=== PATIENT | male | born 1970 | race Caucasian/White ===

== ENCOUNTER 2021-06-11 16:08 | Emergency (ER) | payer BC ==
[2021-06-11] MEDS ORDERED: TORAdol 30 mg Injection IV ONE (16:55)
[2021-06-11] MEDS ORDERED: Sodium Chloride 0.9% 1000 ML 1,000 ML IV STA (16:55)
[2021-06-11] MEDS ORDERED: TORAdol 30 mg Injection ONE (17:09)
[2021-06-11] MEDS ORDERED: Sodium Chloride 0.9% 1000 ML 1,000 ML ONE (17:09)
[2021-06-11 17:20] LABS: Absolute Neutrophil Ct (ANC) 6.51 (1.4-6.9); BASOPHIL % 0.2 % (0.0-0.4); Basophil (Absolute #) 0.02 (0-0.4); Eosinophil % 0.7 % (0.00-5.0); Eosinophil (Absolute #) 0.07 (0-0.5); Hematocrit 44.8 % (42-50); Hemoglobin 14.4 gm/dl (12.5-18.0); Lymphocyte (Absolute #) 2.21 (1.0-4.6); Lymphocytes % 22.5 % (24.0-44.0); Mean Cell Volume 92.2 fl (78-100); Mean Corpuscular Hemoglobin 29.6 pg (26-32); Mean Corpuscular Hgb Concent. 32.1 g/dl (32-36); Mean Platelet Volume 10.2 fl (7.5-11.0); Monocyte (Absolute #) 1.02 (0.0-1.3); Monocytes % 10.4 % (0.0-12.0); Neutrophil % 66.2 % (36.0-66.0); Platelet Count 293 K/mm3 (150-450); Red Blood Count 4.86 M/mm3 (4.1-5.6); Red Cell Distribution Width 13.8 % (11.5-14.0); White Blood Count 9.8 K/mm3 (4.0-10.5)
[2021-06-11 17:25] LABS: ALBUMIN 4.5 g/dL (3.5-5.0); ALKALINE PHOSPHATASE 104 U/L (38-126); ANION GAP 16.1 MEQ/L (5-15); BLOOD UREA NITROGEN 18 mg/dL (9-20); CHLORIDE 104 mmol/L (98-107); Carbon Dioxide 23 mmol/L (22-30); Creatinine 1 1.23 mg/dL (0.66-1.25); EST GLOMERULAR FILTRATION RATE > 60.0 ML/MIN; Glucose 120 mg/dL (74-106); Potassium 3.6 mmol/L (3.5-5.1); SGOT/AST 28 U/L (17-59); SGPT/ALT 22 U/L (0-50); SODIUM 139 mmol/L (137-145); Total Protein 7.9 g/dL (6.3-8.2)
[2021-06-11] MEDS ORDERED: MORPHINE SULFATE 4 MG INJ ONE (17:28)
[2021-06-11] MEDS ORDERED: Zofran 4 MG/2 ML VIAL ONE (17:28)
--- NOTE | 2021-06-11 17:28 | ERPHSYRPT ---
- History of Present Illness Time Seen by Provider: 06/11/21 16:30 Patient Subjective Stated Complaint: Pt began having left flank pain approx a week ago that has radiated to the left side, pt states that he has urinating f requency, burning and blood Triage Nursing Assessment: Pt brought self to the ER, belle justin, was sent to the ER after leaving Dr. Johnson's office, rates left flank pain as 8/10, hx of kidney stones, skin n/w/d, painful urination, urination frequency, hematuria Physician History: Patient is a 50-year-old male presents to our ED as a referral from his primary care doctor's office for evaluation of suspected left-sided kidney stone. Patient has a history of kidney stones. Patient is experiencing left flank pain that has been ongoing for 1 week. Pain is coupled with hematuria. Pain intermittently radiates down to his left lower flank area. No trauma. No fever. No nausea vomiting or diaphoresis. Symptoms are moderate in intensity. Patient currently rates his pain 8 out of 10. Will give patient a dose of Toradol for pain control. Patient otherwise voices no other complaints concerns at this time. Timing/Duration: week(s) (1 week) Severity: moderate Modifying Factors: Improves With: nothing Associated Symptoms: No nausea, No vomiting, No shortness of breath, No diaphoresis, No cough, No chills, No chest pain, No headaches, No syncope, No seizure, No weakness Allergies/Adverse Reactions: cephalexin monohydrate [From Keflex] Adverse Reaction (Mild, Verified 06/11/21 16:25) Nausea Home Medications: ARIPiprazole [Aripiprazole] 20 mg PO DAILY 06/11/21 [History] Vilazodone HCl [Viibryd] 40 mg PO DAILY 06/11/21 [History] Hx Tetanus, Diphtheria Vaccination/Date Given: No (unknown) Hx Influenza Vaccination/Date Given: No Hx Pneumococcal Vaccination/Date Given: No Travel Risk - International Travel Have you traveled outside of the country in past 3 weeks: No - Coronavirus Screening Are you exhibiting any of the following symptoms?: No Close contact with a COVID-19 positive Pt in past 14-21 Days: No - Vaccine Status Have you recieved a Covid-19 vaccination: Yes 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 - Vaccination Dates Date of 2cond Vaccination (if applicable): 03/2021 - Review of Systems Constitutional: No Symptoms, No Fever, No Chills Eyes: No Symptoms Ears, Nose, & Throat: No Symptoms Respiratory: No Symptoms, No Cough, No Dyspnea Cardiac: No Symptoms, No Chest Pain, No Edema, No Syncope Abdominal/Gastrointestinal: No Symptoms, No Abdominal Pain, No Nausea, No Vomiting, No Diarrhea Genitourinary Symptoms: No Symptoms, No Dysuria Musculoskeletal: No Symptoms, No Back Pain, No Neck Pain Skin: No Symptoms, No Rash Neurological: No Symptoms, No Dizziness, No Focal Weakness, No Sensory Changes Psychological: No Symptoms Endocrine: No Symptoms Hematologic/Lymphatic: No Symptoms Immunological/Allergic: No Symptoms All Other Systems: Reviewed and Negative - Past Medical History Pertinent Past Medical History: Yes Neurological History: No Pertinent History ENT History: No Pertinent History Cardiac History: Hypertension Respiratory History: No Pertinent History Endocrine Medical History: No Pertinent History Musculoskeletal History: No Pertinent History GI Medical History: No Pertinent History History: No Pertinent History Psycho-Social History: Depression Male Reproductive Disorders: No Pertinent History Other Medical History: Had PT 7 years ago, was injured at work and didn't have to have surgery. - Past Surgical History Past Surgical History: Yes Neuro Surgical History: No Pertinent History Cardiac: No Pertinent History Respiratory: No Pertinent History Gastrointestinal: Hemorrhoidectomy Genitourinary: No Pertinent History Musculoskeletal: No Pertinent History Male Surgical History: No Pertinent History - Social History Smoking Status: Never smoker Exposure to second hand smoke: Yes Drug Use: none Patient Lives Alone: No - Nursing Vital Signs Nursing Vital Signs: Initial Vital Signs Temperature 98.1 F 06/11/21 16:15 Pulse Rate 82 06/11/21 16:15 Blood Pressure 129/83 06/11/21 16:15 O2 Sat by Pulse Oximetry 96 06/11/21 16:15 Pain Scale Pain Intensity 6 - Physical Exam General Appearance: no apparent distress, alert Eye Exam: PERRL/EOMI, eyes nml inspection Ears, Nose, Throat Exam: normal ENT inspection, TMs normal, pharynx normal, moist mucous membranes Neck Exam: normal inspection, non-tender, supple, full range of motion Respiratory Exam: normal breath sounds, lungs clear, airway intact, No respiratory distress Cardiovascular Exam: regular rate/rhythm, normal heart sounds, normal peripheral pulses Gastrointestinal/Abdomen Exam: soft, normal bowel sounds, No tenderness, No mass Back Exam: normal inspection, normal range of motion, No CVA tenderness, No vertebral tenderness Extremity Exam: normal inspection, normal range of motion, pelvis stable Neurologic Exam: alert, oriented x 3, cooperative, normal mood/affect, nml cerebellar function, nml station & gait, sensation nml, No motor deficits Skin Exam: normal color, warm, dry, No rash Lymphatic Exam: No adenopathy SpO2 Interpretation: normal SpO2: 96 O2 Delivery: Room Air - Course Nursing assessment & vital signs reviewed: Yes - CT Exams Abdomen/Pelvis CT Interpretation: Tele-radiologist Report (New 3 to 4 mm urinary bladder calculus with mild left hydronephrosis and minimal hydroureter. Additional left renal punctate calculus. Incidental chronic bony findings and old granulomatous disease.) Ordered Tests: Active Orders 24 hr Category Date Time Status IV Insertion STAT Care 06/11/21 16:55 Active ABDOMEN AND PELVIS W/0 CONTRAS [CT] Stat Exams 06/11/21 16:55 Completed CBC W DIFF Stat Lab 06/11/21 16:23 Completed CMP Stat Lab 06/11/21 16:23 Completed TROPONIN Q3H Lab 06/11/21 16:23 Completed TROPONIN Q3H Lab 06/11/21 20:00 Ordered TROPONIN Q3H Lab 06/11/21 23:00 Ordered TROPONIN Q3H Lab 06/12/21 02:00 Ordered TROPONIN Q3H Lab 06/12/21 05:00 Ordered UA W/RFX UR CULTURE Stat Lab 06/11/21 17:01 Ordered Medication Summary Discontinued Medications Generic Name Dose Route Start Last Admin Trade Name Freq PRN Reason Stop Dose Admin Sodium Chloride 1,000 mls @ 999 mls/hr 06/11/21 16:55 06/11/21 17:12 Sodium Chloride 0.9% 1000 Ml IV 06/11/21 17:55 999 mls/hr .Q1H1M STA Administration Sodium Chloride Confirm 06/11/21 17:09 Sodium Chloride 0.9% 1000 Ml Administered 06/11/21 17:10 Dose 1,000 mls @ ud .ROUTE .STK-MED ONE Ketorolac Tromethamine 30 mg 06/11/21 16:55 06/11/21 17:12 Ketorolac Tromethamine 30 Mg/Ml Inj IV 06/11/21 16:56 30 mg STAT ONE Administration Ketorolac Tromethamine Confirm 06/11/21 17:09 Ketorolac Tromethamine 30 Mg/Ml Inj Administered 06/11/21 17:10 Dose 30 mg .ROUTE .STK-MED ONE Morphine Sulfate Confirm 06/11/21 17:28 Morphine Sulfate 4 Mg/Ml Injection Administered 06/11/21 17:29 Dose 4 mg .ROUTE .STK-MED ONE Morphine Sulfate 4 mg 06/11/21 17:29 06/11/21 17:32 Morphine Sulfate 4 Mg/Ml Injection IV 06/11/21 17:30 4 mg STAT ONE Administration Ondansetron HCl Confirm 06/11/21 17:28 Ondansetron Hcl 4 Mg/2 Ml Vial Administered 06/11/21 17:29 Dose 4 mg .ROUTE .STK-MED ONE Ondansetron HCl 4 mg 06/11/21 17:29 06/11/21 17:32 Ondansetron Hcl 4 Mg/2 Ml Vial IV 06/11/21 17:30 4 mg STAT ONE Administration Lab/Rad Data: Laboratory Result Diagrams 06/11/21 16:23 06/11/21 16:23 Laboratory Results 06/11/21 06/11/21 06/11/21 Range/Units 16:23 16:23 16:23 WBC 9.8 (4.0-10.5) K/mm3 RBC 4.86 (4.1-5.6) M/mm3 Hgb 14.4 (12.5-18.0) gm/dl Hct 44.8 (42-50) % MCV 92.2 (78-100) fl MCH 29.6 (26-32) pg MCHC 32.1 (32-36) g/dl RDW 13.8 (11.5-14.0) % Plt Count 293 (150-450) K/mm3 MPV 10.2 (7.5-11.0) fl Gran % 66.2 H (36.0-66.0) % Eos # (Auto) 0.07 (0-0.5) Absolute Lymphs (auto) 2.21 (1.0-4.6) Absolute Monos (auto) 1.02 (0.0-1.3) Lymphocytes % 22.5 L (24.0-44.0) % Monocytes % 10.4 (0.0-12.0) % Eosinophils % 0.7 (0.00-5.0) % Basophils % 0.2 (0.0-0.4) % Absolute Granulocytes 6.51 (1.4-6.9) Basophils # 0.02 (0-0.4) Sodium 139 (137-145) mmol/L Potassium 3.6 (3.5-5.1) mmol/L Chloride 104 (98-107) mmol/L Carbon Dioxide 23 (22-30) mmol/L Anion Gap 16.1 H (5-15) MEQ/L BUN 18 (9-20) mg/dL Creatinine 1.23 (0.66-1.25) mg/dL Estimated GFR > 60.0 ML/MIN Glucose 120 H (74-106) mg/dL Calcium 9.0 (8.4-10.2) mg/dL Total Bilirubin 1.20 (0.2-1.3) mg/dL AST 28 (17-59) U/L ALT 22 (0-50) U/L Alkaline Phosphatase 104 (38-126) U/L Troponin I < 0.012 (0.000-0.034) ng/mL Serum Total Protein 7.9 (6.3-8.2) g/dL Albumin 4.5 (3.5-5.0) g/dL - Progress Progress: improved Progress Note: Patient reassessed. He is now pain-free. A new 3 to 4 mm urinary bladder calculus with mild left hydronephrosis and minimal hydroureter. It appears as though the stone has passed into the bladder. We will provide patient with a screen to screen urine hopefully catching the calculus. Patient will be referred to urology for follow-up. Patient voices no other complaints or concerns at this time. Portions of this note were created with voice recognition technology. There may be grammatical, spelling, punctuation or sound alike errors 06/11/21 18:13 Since the stone has passed into the bladder there is no need for Flomax at this time. 06/11/21 18:15 Counseled pt/family regarding: lab results, diagnosis, need for follow-up, rad results - Departure Departure Disposition: Home Clinical Impression: Lung granuloma, Ureterolithiasis, Hydronephrosis, Hydroureter, Nephrolithiasis, Arthritis of spine Condition: Stable Critical Care Time: No Referrals: WINIFRED JOHNSON MD [Primary Care Provider] - Follow up/PCP as directed BENEDICT PALOMINO [COURTESY STAFF] - Follow up/PCP as directed Additional Instructions: Discharge/Care Plan KIMBERLEY MONTES was seen on 06/11/21 in the Emergency Room. The patient was counseled regarding Diagnosis,Lab results, Imaging studies, need for follow up and when to return to the Emergency Room. Prescriptions given: Discharge Note I have spoken with the patient and/or caregivers. I have explained the patient's condition, diagnosis and treatment plan based on the information available to me at this time. I have answered the patient's and/or caregiver's questions and addressed any concerns. The patient and/or caregivers have as good understanding of the patient's diagnosis, condition and treatment plan as can be expected at this point. The vital signs have been stable. The patient's condition is stable and appropriate for discharge from the emergency department. The patient will pursue further outpatient evaluation with the primary care physician or other designated or consulting physician as outlined in the discharge instructions. The patient and/or caregivers are agreeable to this plan of care and follow-up instructions have been explained in detail. The patient and/or caregivers have received these instruction. The patient/and or caregivers are aware that any significant change in condition or worsening of symptoms should prompt an immediate return to this or the closest emergency department or call 911. Prescriptions: Ketorolac Tromethamine [Toradol] 10 mg PO TID 5 Days #15 tablet
[2021-06-11] MEDS ORDERED: MORPHINE SULFATE 4 MG INJ IV ONE (17:29)
[2021-06-11] MEDS ORDERED: Zofran 4 MG/2 ML VIAL IV ONE (17:29)
--- NOTE | 2021-06-11 17:47 | XRAY ---
Indication: Left flank pain. Hematuria. History stones. Multiple contiguous images obtained through the abdomen and pelvis without contrast using renal stone protocol. Comparison: June 25, 2015. Lung bases again demonstrate small posterior left lower lobe calcified granuloma. No infiltrate or effusion. Heart not enlarged. Left infrahilar calcified nodes not previously imaged. Urinary bladder demonstrates new 3-4 mm calculus posteriorly adjacent to the left UVJ. Left kidney is now moderately hydronephrotic with minimal hydroureter consistent with recent passage of said calculus. Left lower renal calyx demonstrates additional punctate calculus. Noncontrasted stomach and bowel loops not obstructed with normal appendix. No free fluid/air. Remaining liver, gallbladder, pancreas, spleen, adrenal glands, kidneys, ureters, bladder, and aorta are unremarkable for noncontrast exam. Osseous structures intact with minimal/mild degenerative changes throughout the thoracolumbar spine. Impression: 1. New 3-4 mm urinary bladder calculus with mild left hydronephrosis and minimal hydroureter. Additional left renal punctate calculus. 2. Incidental chronic bony findings and old granulomatous disease.
[2021-06-11 18:03] LABS: Appearance CLEAR (CLEAR); Bacteria RARE /HPF (NEGATIVE); Bilirubin NEGATIVE (NEGATIVE); Blood LARGE Ery/ul (0-5); Epithelial Cells RARE /HPF (FEW); Glucose NEGATIVE (NEGATIVE); Ketones NEGATIVE (NEGATIVE); Leukocyte Esterase NEGATIVE (NEGATIVE); Mucus SLIGHT /HPF (NEGATIVE); Nitrite NEGATIVE (NEGATIVE); Protein,Urine Dip 30 (Negative); RBC 51-100 /HPF (0-2); Specific Gravity 1.017 (1.005-1.025); Urobilinogen NEGATIVE mg/dL (0-1)
== END 2021-06-11 18:21 | disposition home or self-care (01) ==
LOC: ED 16:08
DX: N13.2 Hydronephrosis with renal and ureteral calculous obstruction (principal); Z87.442 Personal history of urinary calculi; N13.4 Hydroureter; R31.9 Hematuria, unspecified; J84.10 Pulmonary fibrosis, unspecified; M47.819 Spondylosis without myelopathy or radiculopathy, site unspecified
CPT/HCPCS: 36000; 36415; 74176; 80053; 81001; 84484; 85025; 87086; 96374; 96375; 99284; J1885; J2270; J2405

== ENCOUNTER 2021-11-24 19:10 | Emergency (ER) | payer BC ==
--- NOTE | 2021-11-24 20:24 | ERPHSYRPT ---
- History of Present Illness Time Seen by Provider: 11/24/21 20:20 Source: patient, family Exam Limitations: no limitations Patient Subjective Stated Complaint: pt states he has had swelling in his lower ext since yesterday. woke up with a red rash and burning pain in his legs today Triage Nursing Assessment: pt alert and oriented, answers questions approp. pt ambulatory with steady gait noted. respirations nonlabored. red areas noted to bilat lower legs with warmth noted. pt states pain as 8/10 and describes as burning. Physician History: pt reports bilateral ankle swelling yesterday followed by rash and burning both legs today allergy to Keflex but nothing else. no known allergen exposures. rash in bilateral saphenous distribution like cellulitis and tender with bilateral leg swelling. no SOBreath or CP. No itching. neg homans. NV intact distally. abd nontender without mass or peritoneal signs. no Hx of DVT. Timing/Duration: yesterday Quality: painful Severity: moderate Location: extremities Possible Causes: no cause identified Associated Symptoms: edema, rash, No difficulty breathing Allergies/Adverse Reactions: cephalexin monohydrate [From Keflex] Adverse Reaction (Mild, Verified 11/24/21 19:36) Nausea Home Medications: ARIPiprazole [Aripiprazole] 20 mg PO DAILY 06/11/21 [History] Vilazodone HCl [Viibryd] 40 mg PO DAILY 06/11/21 [History] Amlodipine Besylate 5 mg [Norvasc 5 mg] 5 mg PO DAILY 11/24/21 [History] Hx Tetanus, Diphtheria Vaccination/Date Given: Yes Hx Influenza Vaccination/Date Given: Yes Hx Pneumococcal Vaccination/Date Given: No Immunizations Up to Date: Yes Travel Risk - International Travel Have you traveled outside of the country in past 3 weeks: No - Coronavirus Screening Are you exhibiting any of the following symptoms?: No Close contact with a COVID-19 positive Pt in past 14-21 Days: No - Vaccine Status Have you recieved a Covid-19 vaccination: Yes 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 - Vaccination Dates Date of 2cond Vaccination (if applicable): mar 2021 - Review of Systems Constitutional: No Fever, No Chills Eyes: No Symptoms Ears, Nose, & Throat: No Symptoms Respiratory: No Cough, No Dyspnea Cardiac: No Chest Pain, No Edema, No Syncope Abdominal/Gastrointestinal: No Abdominal Pain, No Nausea, No Vomiting, No Diarrhea Genitourinary Symptoms: No Dysuria Musculoskeletal: No Back Pain, No Neck Pain Skin: Cellulitis, Rash Neurological: No Dizziness, No Focal Weakness, No Sensory Changes Psychological: No Symptoms Endocrine: No Symptoms Hematologic/Lymphatic: No Symptoms Immunological/Allergic: No Symptoms All Other Systems: Reviewed and Negative - Past Medical History Pertinent Past Medical History: Yes Neurological History: No Pertinent History ENT History: No Pertinent History Cardiac History: Hypertension Respiratory History: No Pertinent History Endocrine Medical History: No Pertinent History Musculoskeletal History: No Pertinent History GI Medical History: No Pertinent History History: No Pertinent History Psycho-Social History: Depression Male Reproductive Disorders: No Pertinent History Other Medical History: Had PT 7 years ago, was injured at work and didn't have to have surgery. - Past Surgical History Past Surgical History: Yes Neuro Surgical History: No Pertinent History Cardiac: No Pertinent History Respiratory: No Pertinent History Gastrointestinal: Hemorrhoidectomy Genitourinary: No Pertinent History Musculoskeletal: Orthopedic Surgery Male Surgical History: No Pertinent History Other Surgical History: back surgery - Social History Smoking Status: Never smoker Exposure to second hand smoke: Yes Drug Use: none Patient Lives Alone: No (family) - Nursing Vital Signs Nursing Vital Signs: Initial Vital Signs Temperature 97.6 F 11/24/21 19:24 Pulse Rate 90 11/24/21 19:24 Respiratory Rate 20 11/24/21 19:24 Blood Pressure 181/84 11/24/21 19:24 O2 Sat by Pulse Oximetry 97 11/24/21 19:24 Pain Scale Pain Intensity 4 - Physical Exam General Appearance: no apparent distress, alert Eye Exam: PERRL/EOMI, eyes nml inspection Ears, Nose, Throat Exam: normal ENT inspection, pharynx normal, moist mucous membranes Neck Exam: normal inspection, non-tender, supple, full range of motion Respiratory Exam: normal breath sounds, lungs clear, No respiratory distress Cardiovascular Exam: regular rate/rhythm, normal heart sounds Gastrointestinal/Abdomen Exam: soft, mass, No tenderness Rectal Exam: deferred Back Exam: normal inspection, normal range of motion, No CVA tenderness, No vertebral tenderness Extremity Exam: normal inspection, normal range of motion, inflammation, pedal edema, swelling, tenderness Neurologic Exam: alert, oriented x 3, cooperative, normal mood/affect, sensation nml, No motor deficits Skin Exam: normal color, warm, dry, rash SpO2: 97 - Course Nursing assessment & vital signs reviewed: Yes - Radiology Ultrasound Exam Venous Lower Extremity Ultrasound: tele radiology report, negative, Other (No DVTs) Ordered Tests: Active Orders 24 hr Category Date Time Status VENOUS BILATERAL EXTREMITY [US] Stat Exams 11/24/21 20:25 Taken CBC W DIFF Stat Lab 11/24/21 20:35 Completed CMP Stat Lab 11/24/21 20:45 Completed UA W/RFX CULTURE Stat Lab 11/24/21 Completed Medication Summary Discontinued Medications Generic Name Dose Route Start Last Admin Trade Name Freq PRN Reason Stop Dose Admin Dexamethasone Sodium Phosphate 10 mg 11/24/21 20:26 11/24/21 20:57 Dexamethasone Sod Phosphate 10 Mg/Ml IM 11/24/21 20:27 10 mg STAT ONE Administration Dexamethasone Sodium Phosphate Confirm 11/24/21 20:53 Dexamethasone Sod Phosphate 10 Mg/Ml Administered 11/24/21 20:54 Dose 10 mg .ROUTE .STK-MED ONE Diphenhydramine HCl 50 mg 11/24/21 20:26 11/24/21 21:03 Diphenhydramine Hcl 50 Mg/Ml Vial IM 11/24/21 20:27 50 mg STAT ONE Administration Diphenhydramine HCl Confirm 11/24/21 20:54 Diphenhydramine Hcl 50 Mg/Ml Vial Administered 11/24/21 20:55 Dose 50 mg .ROUTE .STK-MED ONE Levofloxacin 250 mg 11/24/21 20:27 11/24/21 20:57 Levofloxacin 250 Mg Tab PO 11/24/21 20:28 250 mg STAT ONE Administration Levofloxacin Confirm 11/24/21 20:53 Levofloxacin 250 Mg Tab Administered 11/24/21 20:54 Dose 250 mg .ROUTE .STK-MED ONE Lab/Rad Data: Laboratory Result Diagrams 11/24/21 20:35 11/24/21 20:45 Laboratory Results 11/24/21 11/24/21 11/24/21 Range/Units Unknown 20:45 20:35 WBC 7.7 (4.0-10.5) K/mm3 RBC 4.43 (4.1-5.6) M/mm3 Hgb 13.6 (12.5-18.0) gm/dl Hct 42.2 (42-50) % MCV 95.3 (78-100) fl MCH 30.7 (26-32) pg MCHC 32.2 (32-36) g/dl RDW 13.8 (11.5-14.0) % Plt Count 257 (150-450) K/mm3 MPV 9.6 (7.5-11.0) fl Gran % 59.0 (36.0-66.0) % Eos # (Auto) 0.22 (0-0.5) Absolute Lymphs (auto) 2.24 (1.0-4.6) Absolute Monos (auto) 0.64 (0.0-1.3) Lymphocytes % 29.3 (24.0-44.0) % Monocytes % 8.4 (0.0-12.0) % Eosinophils % 2.9 (0.00-5.0) % Basophils % 0.4 (0.0-0.4) % Absolute Granulocytes 4.52 (1.4-6.9) Basophils # 0.03 (0-0.4) Sodium 139 (137-145) mmol/L Potassium 4.0 (3.5-5.1) mmol/L Chloride 106 (98-107) mmol/L Carbon Dioxide 23 (22-30) mmol/L Anion Gap 14.0 (5-15) MEQ/L BUN 21 H (9-20) mg/dL Creatinine 1.18 (0.66-1.25) mg/dL Estimated GFR > 60.0 ML/MIN Glucose 130 H (74-106) mg/dL Calcium 9.1 (8.4-10.2) mg/dL Total Bilirubin 0.70 (0.2-1.3) mg/dL AST 29 (17-59) U/L ALT 26 (0-50) U/L Alkaline Phosphatase 110 (38-126) U/L Serum Total Protein 7.3 (6.3-8.2) g/dL Albumin 4.1 (3.5-5.0) g/dL Urinalys Dipstick Clnc MAIN LAB Urine Color YELLOW (YELLOW) Urine Appearance CLEAR (CLEAR) Urine pH 7.0 (5-6) Ur Specific [place] 1.020 (1.005-1.025) POC Urine Protein Conf NEGATIVE (Negative) Urine Ketones NEGATIVE (NEGATIVE) Urine Nitrite NEGATIVE (NEGATIVE) Urine Bilirubin NEGATIVE (NEGATIVE) Urine Urobilinogen 1 (0-1) mg/dL Urine Leukocytes NEGATIVE (NEGATIVE) Urine WBC (Auto) 3-5 (0-5) /HPF Urine RBC (Auto) 0-2 (0-2) /HPF U Epithel Cells (Auto) RARE (FEW) /HPF Urine RBC NEGATIVE (0-5) Aguilar/ul Ur Culture Indicated? NO Urine Glucose NEGATIVE (NEGATIVE) mg/dL - Progress Progress: improved, re-examined Progress Note: 11/24/21 23:25 discussed with pt that we have not determined a cause for his symptoms and a variety of potentially serious ( even can cause ) immunologic/CV, Infect ious or other conditions could still be evolving undetected. He understands but prefers release to outpt f/u and w/u rather than further w/u in ER at this time and has the mental status and cpacity to make this choice. Counseled pt/family regarding: lab results, diagnosis, need for follow-up, rad results - Departure Departure Disposition: Home Clinical Impression: cellulitis/possible vasculitis or immune, edema BLE Condition: Good Critical Care Time: No Referrals: WINIFRED JOHNSON MD [Primary Care Provider] - Follow up/PCP as directed Instructions: Dependent Edema (DC), Cellulitis (Skin Infection), Adult (DC), Vasculitis (DC), Skin Rash (DC) Additional Instructions: see your this week for follow-up and referral as we have not determined the cause, but are treating for an immune condition as well as infection possibilities. Although we had a negative test for blood clots in the legs , you still may be at risk for these devleoping later and should return if worsening swelling , redness or other symptoms./ The antibiotic in this class can sometimes affect tendons and so heavy activities are best restricted for a few weeks after and saee your Dr. if any symptoms in any tendons. followup your blood pressure with your Dr. Prescriptions: Levofloxacin [Levofloxacin 500 MG Tablet] 500 mg PO DAILY #10 tablet Methylprednisolone Packet [Medrol Dosepack] 4 mg PO UD #30 packet
[2021-11-24] MEDS ORDERED: BENADRYL 50 MG/ML IM ONE (20:26)
[2021-11-24] MEDS ORDERED: DECADRON 10MG INJ. IM ONE (20:26)
[2021-11-24] MEDS ORDERED: Levofloxacin 250MG Tablet PO ONE (20:27)
[2021-11-24 20:45] LABS: Absolute Neutrophil Ct (ANC) 4.52 (1.4-6.9); Basophil (Absolute #) 0.03 (0-0.4); Eosinophil % 2.9 % (0.00-5.0); Eosinophil (Absolute #) 0.22 (0-0.5); Hematocrit 42.2 % (42-50); Hemoglobin 13.6 gm/dl (12.5-18.0); Lymphocyte (Absolute #) 2.24 (1.0-4.6); Lymphocytes % 29.3 % (24.0-44.0); Mean Cell Volume 95.3 fl (78-100); Mean Corpuscular Hemoglobin 30.7 pg (26-32); Mean Corpuscular Hgb Concent. 32.2 g/dl (32-36); Mean Platelet Volume 9.6 fl (7.5-11.0); Monocyte (Absolute #) 0.64 (0.0-1.3); Monocytes % 8.4 % (0.0-12.0); Platelet Count 257 K/mm3 (150-450); Red Blood Count 4.43 M/mm3 (4.1-5.6); Red Cell Distribution Width 13.8 % (11.5-14.0); White Blood Count 7.7 K/mm3 (4.0-10.5)
[2021-11-24] MEDS ORDERED: DECADRON 10MG INJ. ONE (20:53)
[2021-11-24] MEDS ORDERED: Levofloxacin 250MG Tablet ONE (20:53)
[2021-11-24] MEDS ORDERED: BENADRYL 50 MG/ML ONE (20:54)
[2021-11-24 21:01] LABS: ALBUMIN 4.1 g/dL (3.5-5.0); ALKALINE PHOSPHATASE 110 U/L (38-126); BLOOD UREA NITROGEN 21 mg/dL (9-20); CHLORIDE 106 mmol/L (98-107); Calcium 9.1 mg/dL (8.4-10.2); Carbon Dioxide 23 mmol/L (22-30); Creatinine 1 1.18 mg/dL (0.66-1.25); EST GLOMERULAR FILTRATION RATE > 60.0 ML/MIN; Glucose 130 mg/dL (74-106); SGOT/AST 29 U/L (17-59); SGPT/ALT 26 U/L (0-50); SODIUM 139 mmol/L (137-145); Total Protein 7.3 g/dL (6.3-8.2)
[2021-11-24 22:22] LABS: Epithelial Cells RARE /HPF (FEW); RBC 0-2 /HPF (0-2)
[2021-11-24 22:24] LABS: Appearance CLEAR (CLEAR); Bilirubin NEGATIVE (NEGATIVE); Glucose NEGATIVE (NEGATIVE); Ketones NEGATIVE (NEGATIVE); Nitrite NEGATIVE (NEGATIVE); Protein,Urine Dip NEGATIVE (Negative); RBC NEGATIVE Ery/ul (0-5); Urine Cultured Indicated? NO; Urobilinogen 1 mg/dL (0-1)
[2021-11-24 22:25] LABS: Dipstick done @ ? MAIN LAB
[2021-11-24 23:23] VITALS: BP 153/98; PULSE 84
[2021-11-24 23:28] VITALS: O2SAT 97
--- NOTE | 2021-11-25 07:21 | XRAY ---
Indication: Rash. Edema. 2-dimensional sonogram and color Doppler imaging of the major venous vessels of the left and right leg performed. Comparison: None No thrombus seen in the examined deep venous vessels of the left and right leg including greater saphenous vein. Veins demonstrate normal compressibility. Venous waveforms are normal with and without augmentation. Impression: Left and right legs negative for DVT. Comment: Preliminary report was given.
== END 2021-11-24 23:48 | disposition home or self-care (01) ==
LOC: ED 19:10
DX: L03.116 Cellulitis of left lower limb (principal); L03.115 Cellulitis of right lower limb; R60.0 Localized edema; R21 Rash and other nonspecific skin eruption; I10 Essential (primary) hypertension; Z79.899 Other long term (current) drug therapy; Z79.52 Long term (current) use of systemic steroids
CPT/HCPCS: 36415; 80053; 81015; 85025; 93970; 96372; 99284; J1100; J1200; A9270-GY

== ENCOUNTER 2025-05-29 09:55 | Emergency (ER) | payer BC ==
[2025-05-29 10:39] VITALS: RESP 16; TEMP 98
[2025-05-29] MEDS ORDERED: NORCO 5/325 MG ONE (10:40)
[2025-05-29] MEDS ORDERED: MOTRIN 600 MG ONE (10:40)
[2025-05-29] MEDS: NORCO 5/325 MG PO ONE (10:41)
[2025-05-29] MEDS: MOTRIN 600 MG PO ONE (10:41)
--- NOTE | 2025-05-29 10:43 | ERPHSYRPT ---
- History of Present Illness Physician History: Right knee pain, No known injury, he does note deliveries, he denies previous surgery to that knee, Initial onset of symptoms was about a week ago and is Aggressively worse over the last 24 hours Method of Injury: unknown Occurred: days ago (1) Quality: constant, aching Severity of Pain-Max: severe Severity of Pain-Current: severe Lower Extremities Pain: knee: right Modifying Factors: Improves With: nothing Allergies/Adverse Reactions: cephalexin monohydrate [From Keflex] Adverse Reaction (Mild, Verified 05/29/25 10:34) Nausea Home Medications: ARIPiprazole [Aripiprazole] 20 mg PO DAILY 06/11/21 [History] Vilazodone HCl [Viibryd] 40 mg PO DAILY 06/11/21 [History] Amlodipine Besylate 5 mg [Norvasc 5 mg] 5 mg PO DAILY 11/24/21 [History] Hx Tetanus, Diphtheria Vaccination/Date Given: Yes Hx Influenza Vaccination/Date Given: Yes Hx Pneumococcal Vaccination/Date Given: No - Past Medical History Pertinent Past Medical History: Yes Neurological History: No Pertinent History ENT History: No Pertinent History Cardiac History: Hypertension Respiratory History: No Pertinent History Endocrine Medical History: No Pertinent History Musculoskeletal History: No Pertinent History GI Medical History: No Pertinent History History: No Pertinent History Psycho-Social History: Depression Male Reproductive Disorders: No Pertinent History Other Medical History: Had PT 7 years ago, was injured at work and didn't have to have surgery. - Past Surgical History Past Surgical History: Yes Neuro Surgical History: No Pertinent History Cardiac: No Pertinent History Respiratory: No Pertinent History Gastrointestinal: Hemorrhoidectomy Genitourinary: No Pertinent History Musculoskeletal: Orthopedic Surgery Male Surgical History: No Pertinent History Other Surgical History: back surgery - Social History Smoking Status: Never smoker Exposure to second hand smoke: Yes Drug Use: none Patient Lives Alone: No (family) - Nursing Vital Signs Nursing Vital Signs: Initial Vital Signs Temperature 98 F 05/29/25 09:55 Pulse Rate 74 05/29/25 09:55 Respiratory Rate 16 05/29/25 09:55 Blood Pressure 146/89 05/29/25 09:55 O2 Sat by Pulse Oximetry 96 05/29/25 09:55 Pain Scale Pain Intensity 10 - Physical Exam General Appearance: no apparent distress, alert Knees Exam: right knee: pain, soft tissue tenderness, swelling (Suprapatellar) Neuro/Tendon Exam: normal sensation, normal motor functions, no evidence tendon injury Mental Status Exam: alert, oriented x 3, cooperative Skin Exam: normal color, warm, dry SpO2 Interpretation: normal SpO2: 96 - Radiology Exams Knee X-ray Interpretation: Interpreted by me, No Fracture, No Subluxation Ordered Tests: Active Orders 24 hr Category Date Time Status KNEE (MIN 4 VIEW) Stat Exams 05/29/25 10:33 Taken Medication Summary Discontinued Medications Generic Name Dose Route Start Last Admin Trade Name Freq PRN Reason Stop Dose Admin Hydrocodone Bitart/Acetaminophen 1 tab 05/29/25 10:34 05/29/25 10:41 Hydrocodone/Apap 5/325 1 Tab Tablet PO 05/29/25 10:35 1 tab STAT ONE Administration Hydrocodone Bitart/Acetaminophen Confirm 05/29/25 10:40 Hydrocodone/Apap 5/325 1 Tab Tablet Administered 05/29/25 10:41 Dose 1 tab .ROUTE .STK-MED ONE Ibuprofen 600 mg 05/29/25 10:34 05/29/25 10:41 Ibuprofen 600 Mg Tablet PO 05/29/25 10:35 600 mg STAT ONE Administration Ibuprofen Confirm 05/29/25 10:40 Ibuprofen 600 Mg Tablet Administered 05/29/25 10:41 Dose 600 mg .ROUTE .STK-MED ONE - Progress Progress Note: 05/29/25 11:52 Discussed x-ray results, outpatient follow-up and treatment - Departure Departure Disposition: Home Clinical Impression: Tendonitis of knee, right Condition: Stable Critical Care Time: No Referrals: MARIZOL GARCIA MD [ACTIVE STAFF, ORTHOPEDICS] - Follow up/PCP as directed Instructions: Bursitis - ED discharge instructions Additional Instructions: Ice 10 to 15 minutes, 3-4 times a day, follow-up to orthopedic walk-in clinic( 8a-10a); Ibuprofen 2-3 tabs 3 times a day Prescriptions: Hydrocodone/Acetaminophen [Hydrocodone-Acetamin 5-325 mg] 1 tab PO Q6HPRN PRN #12 tablet MDD 4 PRN Reason: Pain
[2025-05-29 12:05] VITALS: BP 111/49; PULSE 69; O2SAT 97
--- NOTE | 2025-05-29 18:55 | XRAY ---
Indication: Pain. Comparison: None 4 view right knee demonstrates osteopenia, minimal/mild tricompartmental degenerative changes greatest medial compartment, 7 x 5 x 17 mm medial supracondylar bone island, and 2 tiny heterotopic ossifications adjacent to medial condyle. No acute bony, articular, or soft tissue abnormalities.
== END 2025-05-29 12:11 | disposition home or self-care (01) ==
LOC: ED 09:55
DX: M76.891 Other specified enthesopathies of right lower limb, excluding foot (principal); M25.561 Pain in right knee; I10 Essential (primary) hypertension; Z79.899 Other long term (current) drug therapy; Z79.891 Long term (current) use of opiate analgesic